=== PATIENT | male | born 1965 ===

== ENCOUNTER 2019-09-30 18:14 | Emergency (ER) | payer SELFPAY ==
--- NOTE | 2019-09-30 20:19 | Event Note ---
ED Screening Note ED Screening Note: right leg swelling that began two days ago calf pain no hx of DVT hx metal louis in lower leg in 2002 PMHx none no allergies to meds no recent travel, no recent surgery, no immobilization This initial assessment/diagnostic orders/clinical plan/treatment(s) is/are subject to change based on patients health status, clinical progression and re- assessment by fellow clinical providers in the ED. Further treatment and workup at subsequent clinical providers discretion. Patient/guardian urged not to elope from the ED as their condition may be serious if not clinically assessed and managed. Initial orders include: labs
[2019-09-30 20:21] VITALS: BP 142/87
[2019-09-30 21:32] LABS: Hematocrit 38.9 % (35.5-45.6); Hemoglobin 12.8 gm/dl (11.8-15.2); Mean Corpuscular HGB Conc 33 % (32-34); Mean Corpuscular Volume 89 fl (84-94); Platelet Count 352 K/mm3 (140-440); Red Blood Count 4.35 M/mm3 (3.65-5.03); Red Cell Distribution Width 13.5 % (13.2-15.2)
[2019-09-30 21:47] LABS: INR 0.92 (0.87-1.13); Partial Thromboplastin Time 26.2 Sec. (24.2-36.6)
[2019-09-30 21:53] LABS: Alanine Aminotransferase 32 units/L (7-56); Albumin 3.3 g/dL (3.9-5); BUN/Creatinine Ratio 26; Blood Urea Nitrogen 21 mg/dL (9-20); Calcium 8.9 mg/dL (8.4-10.2); Hemolysis Index 12
[2019-09-30 22:15] LABS: Basophils % (Manual) 0 % (0.0-1.8); Myelocytes # (Manual) 0.2 K/mm3; RBC Morphology Normal; Total Cells Counted 100
--- NOTE | 2019-09-30 22:58 | Emergency Department Report ---
HPI - General Chief Complaint: Extremity Problem,Nontraumatic Time Seen by Provider: 09/30/19 20:16 - HPI HPI: 54-year-old male presents to the emergency department with complaint of a greater than one week history of right lower extremity swelling and pain from the knee down through the foot. He has a history of previous orthopedic injury to this area with a metal louis placed sometime back around 2002. He denies any recent trauma or injury. He denies any skin color change, rash or lesions. He has not taken anything for her symptoms prior to presentation. He denies any recent travel or immobility. The patient had some x-rays done at a local clinic but it is unknown what the results are. No history of DVT. The patient does not speak Amharic but his daughter is at bedside translating. ED Past Medical Hx - Past Medical History Previous Medical History?: No - Surgical History Past Surgical History?: No - Social History Smoking Status: Never Smoker Substance Use Type: None ED Review of Systems ROS: Stated complaint: RT LEG PASS SURGERY/PAIN Other details as noted in HPI Comment: All other systems reviewed and negative Constitutional: denies: chills, fever Eyes: denies: eye pain, vision change ENT: denies: ear pain, throat pain Respiratory: denies: cough, shortness of breath Cardiovascular: edema (right lower leg). denies: chest pain, palpitations Gastrointestinal: denies: abdominal pain, vomiting Musculoskeletal: joint swelling, arthralgia, myalgia Skin: denies: rash, lesions Neurological: denies: numbness, paresthesias Physical Exam - Physical Exam Vital Signs: Vital Signs 09/30/19 20:16 Temperature 97.7 F Pulse Rate 97 H Respiratory 17 Rate Blood Pressure 142/87 O2 Sat by Pulse 99 Oximetry Physical Exam: GENERAL: The patient is well-developed well-nourished. HEENT: Normocephalic. Atraumatic. Patient has moist mucous membranes. EYES: Extraocular motions are intact. NECK: Supple. Trachea is midline CHEST/LUNGS: Clear to auscultation. There is no respiratory distress noted. HEART/CARDIOVASCULAR: Regular. There is no tachycardia. ABDOMEN: There is no abdominal distention. SKIN: Skin is warm and dry. There is some nonpitting swelling to the right lower leg when compared to the left. No erythema, or fluctuance. NEURO: The patient is awake, alert, and oriented. The patient is cooperative. The patient has no focal neurologic deficits. Normal speech. MUSCULOSKELETAL: There is tenderness to palpation to the right calf. There is no limitation range of motion. ED Course Vital Signs 09/30/19 20:16 Temperature 97.7 F Pulse Rate 97 H Respiratory 17 Rate Blood Pressure 142/87 O2 Sat by Pulse 99 Oximetry ED Medical Decision Making - Lab Data Result diagrams: 09/30/19 20:47 09/30/19 20:47 - Radiology Data Radiology results: image reviewed interpreted by me: X-ray of the right tib-fib does not show any fracture, dislocation or any acute process. - Medical Decision Making This patient presents with a 7-8 day history of right lower leg swelling and pain that is atraumatic. Labs were unremarkable. X-ray does not show any fracture, dislocation or any acute process. While the patient does not have any known risk factors for DVT or thromboembolic disease, he will be set up for outpatient venous Doppler ultrasound tomorrow morning, as I'm unable to get this completed this evening. He was given a dose of Lovenox at 1 unit per KG. If the ultrasound comes back positive, he will be redirected to the emergency department for further evaluation and anticoagulation. If negative, he has been given referrals for local orthopedist. - Differential Diagnosis cellulitis, venous stasis, DVT, occult fracture Critical Care Time: No Critical care attestation.: If time is entered above; I have spent that time in minutes in the direct care of this critically ill patient, excluding procedure time. ED Disposition Clinical Impression: Right leg pain, Right leg swelling Disposition: - TO HOME OR SELFCARE Is pt being admited?: No Condition: Stable Instructions: Leg Edema (ED), Arthralgia (ED) Additional Instructions: Please call the number listed on your discharge paperwork to schedule a time to return to the outpatient imaging portion of the hospital in the morning for your right leg venous Doppler ultrasound. This is to rule in or rule out a blood clot, known as a DVT (Deep Vein Thrombosis). If positive, he will be redirected to the emergency department for further evaluation and treatment. If negative, I have given you a referral for a local orthopedist, Dr. Cazares, to follow up regarding your leg pain. Return to the emergency Department with any worsening of your symptoms or any acute distress. Referrals: PRIMARY CARE,MD [Primary Care Provider] - 3-5 Days CIELO CAZARES MD [Staff Physician] - 3-5 Days Time of Disposition: 00:15 Print Language: CAMBODIAN
--- NOTE | 2019-10-01 00:01 | XRay Report ---
HISTORY:right leg pain COMPARISON: None. TECHNIQUE: AP lateral and obliques views were obtained FINDINGS: Bones: No fracture or dislocation. Previous intramedullary louis tibia for stabilization of a distal fi bular and distal tibial fracture. Old traumatic changes tibial plateau. Joint spaces: Maintained. Soft tissues: No significant abnormality. Additional findings: None. IMPRESSION: 1. No acute abnormality identified Signer Name: Rowdy Man MD Signed: 09/30/2019 11:57 PM Workstation Name: [id number]
[2019-10-01] MEDS ORDERED: ENOXAPARIN 100 MG/1 ML INJ SUB-Q ONE (00:12)
== END 2019-10-01 00:40 | disposition home or self-care (01) ==
LOC: ED 18:14
DX: M79.661 Pain in right lower leg (principal); M79.89 Other specified soft tissue disorders
CPT/HCPCS: 36415; 73590; 80053; 85007; 85025; 85610; 85730; 96372; 99283; J1650